=== PATIENT | female | born 2005 | race Two or more races ===

== ENCOUNTER 2024-06-01 20:09 | Emergency (ER) | payer MEDICAID ==
[2024-06-01] MEDS ORDERED: Sodium Chloride 0.9% 10 ML Syringe FLUSH PRN (20:24)
[2024-06-01 20:39] LABS: BASOPHILS ABSOLUTE AUTO 0.1 K/mm3 (0.0-0.3); BASOPHILS PERCENT AUTO 0.6 % (0.0-1.0); EOSINOPHILS PERCENT AUTO 0.1 % (0.0-5.0); HEMATOCRIT 43.9 % (37.0-47.0); HEMOGLOBIN 14.8 gm/dl (12.0-16.0); IMMATURE GRAN ABSOLUTE AUTO 0.04 K/mm3 (0.00-0.05); IMMATURE GRAN PERCENT AUTO 0.3 % (0.0-0.4); LYMPHOCYTES ABSOLUTE AUTO 5.4 K/mm3 (2.0-8.8); MEAN CORPUSCULAR HEMOGLOBIN 29.7 pg (28.0-32.0); MEAN CORPUSCULAR HGB CONC 33.7 g/dl (32.0-36.0); MEAN PLATELET VOLUME 9.1 fl (9.4-12.3); MONOCYTES ABSOLUTE AUTO 1.1 K/mm3 (0.1-1.4); MONOCYTES PERCENT AUTO 7.6 % (2.0-10.0); NEUTROPHILS ABSOLUTE AUTO 7.9 K/mm3 (1.5-8.5); NEUTROPHILS PERCENT AUTO 54.4 % (35.0-45.0); PLATELET COUNT,PLT 371 K/mm3 (150-400); RED BLOOD CELL COUNT 4.99 M/mm3 (4.10-5.30); WHITE BLOOD CELL COUNT,WBC 14.47 K/mm3 (4.5-13.5)
[2024-06-01 20:46] LABS: INR 1.03; PROTHROMBIN TIME 10.9 SECONDS (9.7-12.0)
[2024-06-01 20:59] LABS: A/G RATIO 1.2 (1-2); ALBUMIN 4.4 g/dl (3.4-5.0); ANION GAP 18.3 (5-15); BILIRUBIN TOTAL 0.4 mg/dL (0.2-1.0); BUN/CREATININE RATIO 12.9 (14-18); CALCIUM 8.7 mg/dL (8.5-10.1); CREATININE 0.7 mg/dL (0.55-1.02); EST CRCL DRUG DOSING (CG) 116.32 mL/min; ETHANOL BLOOD MEDICAL 0.08 gm% (0.00); POTASSIUM,K 3.3 mEq/L (3.5-5.1); PROTEIN TOTAL,TP 8.2 g/dl (6.4-8.2)
[2024-06-01] MEDS: Lactated Ringers 1,000 ML IV ONE (21:41)
[2024-06-01 22:20] LABS: BARBITURATE SCREEN,URINE NEGATIVE (CUTOFF=200); BENZODIAZEPINES SCREEN,URINE NEGATIVE (CUTOFF=150); BUPRENORPHINE SCREEN,URINE NEGATIVE (CUTOFF=10); METHADONE SCREEN, URINE NEGATIVE (CUTOFF=200); METHAMPHETAMINES SCREEN, URINE NEGATIVE (CUTOFF=500); OXYCODONE SCREEN,URINE NEGATIVE (CUT0FF=100); THC SCREEN,URINE 20 NG/ML PRESUMPTIVE POSITIVE (CUTOFF=50)
[2024-06-01 22:21] LABS: AMPHETAMINES SCREEN, URINE NEGATIVE (CUTOFF=500)
[2024-06-01] MEDS: Sodium Chloride 0.9% 1,000 ML IV SCH (23:27)
[2024-06-02 03:38] LABS: BASE EXCESS VENOUS -0.2 (-4.0-2.0); BICARBONATE,VENOUS 24.6 meq/L (22-26); O2 SATURATION VENOUS 82.9; PCO2 VENOUS 42.9 mmHg (41-51); PH,VENOUS 7.38 (7.30-7.40)
[2024-06-02 05:45] LABS: ALBUMIN 3.2 g/dl (3.4-5.0); ANION GAP 12.8 (5-15); BILIRUBIN TOTAL 0.6 mg/dL (0.2-1.0); BUN/CREATININE RATIO 15.7 (14-18); CALCIUM 7.9 mg/dL (8.5-10.1); CREATININE 0.7 mg/dL (0.55-1.02); EST CRCL DRUG DOSING (CG) 116.32 mL/min; POTASSIUM,K 3.8 mEq/L (3.5-5.1); PROTEIN TOTAL,TP 6.3 g/dl (6.4-8.2)
[2024-06-02 08:16] LABS: TSH 1.818 uIU/mL (0.516-4.13)
[2024-06-02 08:37] LABS: CORONAVIRUS COVID-19 NAA NEGATIVE (NEGATIVE); INFLUENZA A NAA NEGATIVE (NEGATIVE); RESPIRATORY SYNCYTIAL VIR NAA NEGATIVE (NEGATIVE)
== END 2024-06-02 10:18 ==
LOC: JD.ED 20:09
DX: T43.222A Poisoning by selective serotonin reuptake inhibitors, intentional self-harm, initial encounter (principal); F32.A Depression, unspecified
CPT/HCPCS: 0241U; 36415; 71046; 80053; 80143; 80179; 80306; 80307; 82550; 82803; 83605; 84443; 84703; 85025; 85610; 93005; 96360; 96361; 99285; J7030; J7120; 93010